=== PATIENT | female | born 1950 | race Caucasian/White ===

== ENCOUNTER 2019-12-14 13:46 | Outpatient (CLI) | payer MEDICARE, SELFPAY ==
--- NOTE | ~2019-12-14 | MM_ITS ---
EXAMINATION: MM screening vero BI w fabián HISTORY: Screening TECHNIQUE: Craniocaudal and mediolateral oblique 3-D tomosynthesis images were obtained and synthetic 2-D images were generated. CAD analysis was submitted and interpreted. COMPARISON: Comparison to multiple prior studies sequentially, with oldest reviewed study dated 03/11. BREAST PARENCHYMAL COMPOSITION: The breasts are heterogeneously dense, which may obscure small masses . FINDINGS: There is no evidence of suspicious mass, calcification, or architectural distortion to sugg est malignancy in either breast. There has been no suspicious interval change. IMPRESSION: 1. No mammographic evidence of malignancy. 2. Recommend routine screening mammography in one year. BI-RADS Category 1: Negative Reviewed, dictated and finalized at location A.
--- NOTE | ~2019-12-14 | DEXA_ITS ---
BMD(1) Young-Adult(2) Age-Matched(3) Region (g/cm2) T-score Z-score WHO Classification L1 1.184 0.4 1.2 Normal L2 1.422 1.8 2.6 Normal L3 1.457 1.9 2.7 Normal L4 1.256 0.3 1.1 Normal L1-L4 1.332 1.1 1.9 Normal Trend: L1-L4 Change vs Change vs Measured Age BMD(1) Baseline Previous Date (years) (g/cm2) (%) (%) 12/14/2019 69.4 1.332 2.1 2.1 09/25/2017 67.2 1.305 baseline - 1 - Statistically 68% of repeat scans fall within 1SD (+- 0.010 g/cm2 for AP Spine L1-L4) 2 - [place] (Combined NHANES (ages 20-30) / Adworx (ages 20-40)) AP Spine Reference Population (v112) 3 - Matched for Age, Weight (females 25-100 kg), Ethnic 11 - World Health Organization - Definition of Osteoporosis and Osteopenia for Women: Normal = T-score at or above -1.0 SD; Osteopenia = T-score between -1.0 and -2.5 SD; Osteoporosis = T-score at or below -2.5 SD; (WHO definitions only apply when a young healthy Women reference database is used to determine T-scores.) Printed: 12/14/2019 2:45:15 PM (13.60)76:3.00:22.22:27.0 0.00:12.48 0.60x1.05 28.3:%Fat=47.1% 0.00:0.00 0.00:0.00 Verify bone is centered and there is sufficient tissue next to bone. Filename: vyvleqafq.dfx Scan Mode: Thick;OneScan 83.0 uGDHgate [id number] BMD(1) Young-Adult(2,7) Age-Matched(3) Region (g/cm2) T-score Z-score WHO Classification Neck Left 0.796 -1.7 -0.6 Osteopenia Right 0.785 -1.8 -0.7 Osteopenia Mean 0.791 -1.8 -0.6 Osteopenia Difference 0.011 -0.1 -0.1 - Total Left 0.960 -0.4 0.5 Normal Right 0.896 -0.9 0.0 Normal Mean 0.928 -0.6 0.2 Normal Difference 0.064 -0.5 -0.5 - Hip [place] Length Comparison (mm) (Right = 96.7 mm) (Mean = 103.8 mm) (Left = 97.5 mm) Trend: Total Mean Change vs Change vs Measured Age BMD(1) Baseline Previous Date (years) (g/cm2) (%) (%) 12/14/2019 69.4 0.928 baseline - 1 - Statistically 68% of repeat scans fall within 1SD (+- 0.010 g/cm2 for DualFemur Total) 2 - [place] (Combined NHANES (ages 20-30) / Adworx (ages 20-40)) Femur Reference Population (v112) 3 - Matched for Age, Weight (females 25-100 kg), Ethnic 7 - DualFemur Total T-score difference is 0.5. Asymmetry is None. 11 - World Health Organization - Definition of Osteoporosis and Osteopenia for Women: Normal = T-score at or above -1.0 SD; Osteopenia = T-score between -1.0 and -2.5 SD; Osteoporosis = T-score at or below -2.5 SD; (WHO definitions only apply when a young healthy Women reference database is used to determine T-scores.) Printed: 12/14/2019 2:45:16 PM (13.60); Filename: vyvleqafq.dfx; Right Femur; 22.5:%Fat=38.2%; Neck Angle (deg)= 64; Scan Mode: Standard 37.0 uGy; Left Femur; 23.7:%Fat=42.9%; Neck Angle (deg)= 61; Scan Mode: Standard 37.0 uGy Heap [id number] Dear Gustavo Roberts, Your patient Rosalba Ang completed a BMD test on 12/14/2019 using the Heap DXA System (analysis version: 13.60) manufactured by [employer]. The following summarizes the results of our evaluation. PATIENT BIOGRAPHICAL: Name: Rosalba Ang Date: 1950 Height: 62.0 in. Gend
== END 2019-12-14 13:47 | disposition home or self-care (01) ==
LOC: CHSIMG 13:52
PROVIDERS: PCP Internal Medicine; Visit Provider Internal Medicine
DX: M81.0 Age-related osteoporosis without current pathological fracture (principal); Z12.31 Encounter for screening mammogram for malignant neoplasm of breast
CPT/HCPCS: 77063; 77067; 77080

== ENCOUNTER 2021-02-08 13:33 | Outpatient (CLI) | payer MEDICARE, SELFPAY ==
[2021-02-08 15:21] LABS: SARS-CoV-2 RNA PCR Negative (Negative)
== END 2021-02-08 13:34 | disposition home or self-care (01) ==
LOC: CHSLAB 13:35
PROVIDERS: PCP Internal Medicine; Visit Provider Internal Medicine
DX: J06.9 Acute upper respiratory infection, unspecified (principal); Z20.822 Contact with and (suspected) exposure to COVID-19
CPT/HCPCS: C9803; U0003; U0005

== ENCOUNTER 2021-03-04 08:01 | Outpatient (CLI) | payer MEDICARE, SELFPAY ==
--- NOTE | ~2021-03-04 | MM_ITS ---
EXAMINATION: MM screening vero BI w fabián HISTORY: Screening mammogram TECHNIQUE: Craniocaudal and mediolateral oblique 3-D tomosynthesis images were obtained and synthetic 2-D images were generated. CAD analysis was submitted and interpreted. COMPARISON: 12/14/2019, 11/19/2018, 09/25/2017, 03/24/2016 bilateral digital screening mammogram examinat ions BREAST PARENCHYMAL COMPOSITION: There are scattered areas of fibroglandular density. FINDINGS: Relatively stable hypodensities circumscribed lobular opacity in the posterior lower inner left breast, measuring approximately 7.9 x 7.6 mm compared to 6.6 x 6.3 mm on 03/24/2016 and 8.2 x 8 mm on 12/14/2019. This is most likely benign. Occasional scattered bilateral benign calcifications. There is no evidence of suspicious mass, calcif ication, or architectural distortion to suggest malignancy in either breast. There has been no suspic ious interval change. IMPRESSION: 1. No mammographic evidence of malignancy. 2. Recommend routine screening mammography in one year. BI-RADS Category 2: Benign finding(s). Reviewed, dictated and finalized at location A.
== END 2021-03-04 08:02 | disposition home or self-care (01) ==
LOC: CHSIMG 08:03
PROVIDERS: PCP Internal Medicine; Visit Provider Internal Medicine
DX: Z12.31 Encounter for screening mammogram for malignant neoplasm of breast (principal)
CPT/HCPCS: 77063; 77067

== ENCOUNTER 2021-09-19 08:42 | Outpatient (CLI) | payer MEDICARE, SELFPAY ==
[2021-09-19 09:22] LABS: Thyroid Stimulating Hormone 42.72 uIU/mL (0.36-3.74)
[2021-09-23 07:41] LABS: Thyroglobulin 0.2 ng/mL (2.8-40.9); Thyroglobulin Antibodies <1 IU/mL (<=1)
== END 2021-09-19 08:43 | disposition home or self-care (01) ==
LOC: CHSLAB 08:45
PROVIDERS: PCP Internal Medicine; Visit Provider Radiology Radiation Oncology
DX: C73 Malignant neoplasm of thyroid gland (principal)
CPT/HCPCS: 36415; 84432; 84443; 86800

== ENCOUNTER 2022-04-16 10:05 | Outpatient (CLI) | payer MEDICARE, SELFPAY ==
--- NOTE | ~2022-04-16 | DEXA_ITS ---
Bone Density Report Name: SARAH IRIZARRY Age: 71 Sex: Female Ethnicity: White Date of : 1950 Indication: postmenopausal; screening for osteoporosis; height loss; cancer; hysterectomy; Referring Provider: Gustavo Roberts Study: Bone densitometry was performed. Exam Date: April 16, 2022 Accession number: [id number] Bone Density: Region BMD T-score Z-score Classification AP Spine(L2, L3, L4) 1.279 1.8 4.2 Normal Femoral Neck (Left) 0.653 -1.8 0.2 Osteopenia Total Hip (Left) 0.847 -0.8 0.9 Normal Femoral Neck (Right) 0.614 -2.1 -0.2 Osteopenia Total Hip (Right) 0.791 -1.2 0.4 Osteopenia Femoral Neck Mean 0.633 -1.9 0.0 Osteopenia Total Hip Mean 0.819 -1.0 0.6 Normal World Health Organization criteria for BMD impression classify patients as: Normal (T-score at or above -1.0), Osteopenia (T-score between -1.0 and -2.5), or Osteoporosis (T-score at or below -2.5). 10-year Fracture Risk(1): Major Osteoporotic Fracture 11% Hip Fracture 2.3% Reported Risk Factors: [place] (), Neck BMD=0.614, BMI=41.0 (1) FRAX(R) Version 3.08. Fracture probability calculated for an untreated patient. Fracture probability may be lower if the patient has received treatment. Clinical Information Provided by Patient: Has used the following medications: Vitamin D, stress b Has the following medical conditions: Cancer, Hysterectomy Patient maximum height was 62 Menopause Age: 39 No regular weight bearing exercise Drinks caffeinated beverages Onset of menses at age 11 Number of children 2 Impression: The patient has low bone mass, based on the Right Femoral Neck T-score. Discussion: BONE DENSITY IS LOW AT ONE OR MORE SKELETAL SITES. This patient's lowest T-score is low at one or more skeletal sites. It meets the World Health Organization's (WHO) criteria for ?low bone mass? (T-score between -1.0 and -2.5). The patient's 10-year risk of fracture as calculated by FRAX is less than the threshold where pharmacological therapy is recommended by the National Osteoporosis Foundation (NOF). However, all treatment decisions require clinical judgment and consideration of individual patient factors, including patient preferences, comorbidities, previous drug use, risk factors not captured in the FRAX model (e.g., frailty, falls, vitamin D deficiency, increased bone turnover, interval significant decline in bone density) and possible under or overestimation of fracture risk by FRAX. The patient should follow a healthful lifestyle (good nutrition with adequate calcium and vitamin D, and appropriate weight-bearing exercise). Follow-Up: Consider repeating this study in 2 to 3 years to reassess this patient's status, or sooner if there is some new clinical indication. Reported by: Moses
--- NOTE | ~2022-04-16 | MM_ITS ---
EXAMINATION: MM screening [facility] BI w fabián HISTORY: Screening mammogram TECHNIQUE: Craniocaudal and mediolateral oblique 3-D tomosynthesis images were obtained and synthetic 2-D images were generated. CAD analysis was submitted and interpreted. COMPARISON: 03/04/2021, 12/14/2019, 11/19/2018 BREAST PARENCHYMAL COMPOSITION: There are scattered areas of fibroglandular density. FINDINGS: RIGHT BREAST: A mass is present in the anterior third of the upper-outer quadrant breast. LEFT BREAST: No suspicious mass, calcification, or architectural distortion are identified to suggest malignancy. There has been no suspicious interval change. IMPRESSION: 1. Right breast mass. 2. Additional mammographic views and possible breast ultrasound are recommended. BI-RADS Category 0: Incomplete: Needs additional imaging evaluation. Reviewed, dictated and finalized at location A. IOLOGY MANAGER IMPRESSION: 1. Right breast mass. 2. Additional mammographic views and possible breast ultrasound are recommended . BI-RADS Category 0: Incomplete: Needs additional imaging evaluation.
== END 2022-04-16 10:06 | disposition home or self-care (01) ==
LOC: CHSIMG 10:06
PROVIDERS: PCP Internal Medicine; Visit Provider Internal Medicine
DX: M81.0 Age-related osteoporosis without current pathological fracture (principal); Z12.31 Encounter for screening mammogram for malignant neoplasm of breast
CPT/HCPCS: 77063; 77067; 77080

== ENCOUNTER 2022-04-24 08:45 | Outpatient (CLI) | payer MEDICARE, SELFPAY ==
--- NOTE | ~2022-04-24 | MMUS_ITS ---
EXAMINATION: MM diagnostic vero RT w fabián, US breast RT complete HISTORY: Follow-up right breast mass TECHNIQUE: Additional 3-D tomosynthesis images of the right breast were performed and synthetic 2-D i mages were generated. CAD analysis was submitted and interpreted. High resolution complete right sumit st ultrasound was performed. COMPARISON: Comparison to multiple prior studies sequentially, with oldest reviewed study dated 03/11. BREAST PARENCHYMAL COMPOSITION: The breasts are heterogeneously dense, which may obscure small masses FINDINGS: MAMMOGRAPHIC FINDINGS: There is a 1.5 cm mass in the upper outer quadrant of the right breast. There are scattered small nod ules predominantly in the lateral aspect of the right breast obscured by fibroglandular tissue. ULTRASOUND: Complete bilateral US of all 4 quadrants of the right breast and retroareolar region was reviewed. Th ere are multiple cysts, largest at 11:00, 2 cm from the nipple measuring 1.5 cm, corresponding to the mammographic mass. At 3:00, 2 cm from the nipple there is a complicated cyst with associated areas o f comet tail artifact measuring 6 mm. The margins are slightly irregular. Parallel orientation and no internal vascularity. There are subtle posterior acoustic enhancement. IMPRESSION: 1. Complex cystic mass measuring 6 mm at 3:00, 2 cm from the nipple. 2. Fine-needle aspiration recommended. If no fluid can be obtained, biopsy is recommended. BI-RADS category 4, suspicious findings. Reviewed, dictated and finalized at location B. OR TACK PULLER IMPRESSION: 1. Complex cystic mass measuring 6 mm at 3:00, 2 cm from the nipple. 2. Fine-needle aspiration recommended. If no fluid can be obtained, biopsy is r ecommended. BI-RADS category 4, suspicious findings.
== END 2022-04-24 08:46 | disposition home or self-care (01) ==
LOC: CHSIMG 08:47
PROVIDERS: PCP Internal Medicine; Visit Provider Internal Medicine
DX: R92.8 Other abnormal and inconclusive findings on diagnostic imaging of breast (principal)
CPT/HCPCS: 76641; 77061; 77065; G0279

== ENCOUNTER 2023-01-26 08:55 | Outpatient (CLI) | payer MEDICARE, SELFPAY ==
--- NOTE | 2023-01-27 12:06 | WPDHOLTEREM ---
Holter/Event Monitor Holter/Event Monitor Date of procedure: 01/26/23 Holter/Event Procedure: 24 Hr Holter Monitor Indications: Bradycardia Conclusion: 1. 24 hour holter monitor on 01/26/23. 2. Underlying rhythm is sinus rhythm. HR range 32-85 bpm; average HR 47 bpm. HR at 32 bpm was at 11:58. 3. There are 59 premature supraventricular complexes and 5 supraventricular couplets. No supraventricular tachycardia. 4. There are 11 premature ventricular complexes. No ventricular tachycardia. 5. No sinoatrial or atrioventricular blocks. No pauses longer than 2.0 seconds. 6. No symptoms available for correlation.
== END 2023-01-26 08:56 | disposition home or self-care (01) ==
LOC: CHSCARD 08:57
PROVIDERS: PCP Internal Medicine; Visit Provider Internal Medicine
DX: R00.1 Bradycardia, unspecified (principal)
CPT/HCPCS: 93225; 93226

== ENCOUNTER 2024-07-07 14:31 | Outpatient (CLI) | payer MEDICARE, SELFPAY | END 2024-07-07 14:32 | disposition home or self-care (01) | LOC: CHSIMG 14:32 | PROVIDERS: PCP Internal Medicine; Visit Provider Internal Medicine | DX: Z78.0 Asymptomatic menopausal state (principal); M85.89 Other specified disorders of bone density and structure, multiple sites | CPT/HCPCS: 77080 ==

== ENCOUNTER 2024-07-26 09:55 | Outpatient (CLI) | payer MEDICARE, SELFPAY ==
[2024-07-26 10:17] VITALS: BP 155/88; PULSE 80; RESP 14; TEMP 36.5; O2SAT 97; BMI 35.5
[2024-07-26] MEDS: ZOLEDRONIC ACID 5 MG/100 ML 100 ML 400 MG IVPB (10:28)
[2024-07-26 10:58] VITALS: BP 152/70; PULSE 80; RESP 14
--- NOTE | 2024-07-26 11:00 | PC.NURSE ---
Patient here for Reclast infusion. Education given. All concerns voiced answered. Infusion administered. SEE MAR/patient care notes. Tolerated well.
--- OUTSIDE RECORDS SUMMARY | 2024-07-26 11:07 | XMS_ITS | Encounter Summary ---
Author Organization [facility] Healthcare Address [address] [place] [address] Care Team Providers Care Technical Sales Associate Name Role Phone Gustavo Roberts MD Primary Care Provider [phone] Nathalia Pena MD PhD Unavailable + Gianni Clarke MD Unavailable [phone] Mac Mock MD Unavailable [phone] Reason for Visit * Diagnostic Imaging (Routine) - Closed Specialty Diagnoses / Procedures Referred By Contac t Referred To Contact Procedures Breast Imaging Screening Outside Reference Brianna Winston NP Phone: tel: fax: Referral ID Status Reason Start Date Expiration Date Visits Re quested Visits Authorized [id number] Closed 05/20/2022 06/19/2023 1 1 Encounter Details Date Type Department Care Team (Late st Contact Info) Description 12/14/2019 Hospital Encounter [facility] [address] [place] [id number] Social History Tobacco Use Types Packs/Day Years Used Date Smoking Tobacco: Never Smokeless Tobacco: Never Alcohol Use Standard Drinks/Week Comments Never 0 (1 standard drink = 0.6 oz pur e alcohol) AUDIT-C Answer Date Recorded Frequency of Alcohol Consumption Never 02/03/2019 Average Number of Drinks Not on file 019 Frequency of Binge Drinking Not on file 01/10 Comments No Sex and Gender Information Value Date Recorded Sex Assigned at Not on file Legal Sex Female 9:07 AM TOP IRONER Gender Identity Not on file Sexual Orientation Not on file documented as of this encounter Plan of Treatment Not on file documented as of this encounter Procedures Procedure Name Priority Date/Time Associated Diagnosis Comments BREAST IMAGING MG SCREENING OUTSIDE REFERENCE Routine 12/14/2019 12:00 AM CDT documented in this encounter Results * Breast Imaging Screening Outside Reference (12/14/2019 12:00 AM CDT) Impressions [facility]_M[facility]MO[facility] - 05/20/2022 2:20 PM TOP IRONER These images are for Reference purposes only and have not been reviewed by [facility]iology. There will be no report generated by a [facility] Radiologist. Narrative [facility]_MAMMO[facility] - 05/20/2022 2:20 PM TOP IRONER EXAMINATION: Images For Reference Purposes Only us Brianna Winston NUCLEAR MEDICINE SUPERVISOR IMG MAMMO PROCEDURES Fin al Result [facility] documented in this encounter Visit Diagnoses Not on filedocumented in this encounter Care Teams Technical Sales Associate Relationship Specialty Start Date End Date Gustavo Roberts MD PCP - General Internal Medicine 12/30/18 07/14/23 Nathalia Pena MD PhD Radiation Oncologist Radiation Oncology 03/30/19 Gianni Clarke MD Radiation Oncologist Radiation Oncology 03/30/19 4 Mac Mock MD [address] [place] [address] Referring Physician Surgical Oncology 03/30/19 documented as of this encounter
--- OUTSIDE RECORDS SUMMARY | 2024-07-26 11:07 | XMS_ITS | Clinical Summary ---
Author Organization [facility] Address [facility] [place] [address] Care Team Providers Care Music Producer Name Role Phone Gustavo Roberts MD Primary Care Provider [phone] Sarah Perez APRN, LUBRICATION TECHNICIAN-C Unavailable Juan Yoon MD Unavailable [phone] Allergies No known active allergies Medications famotidine 20 MG tablet Take 1 tablet (20 mg total) by mouth daily as needed for Heartburn. Active levothyroxine (SYNTHROID) 112 MCG tablet Take 1 tablet (112 mcg total) by mouth every morning. 01/13/2023 Active losartan (COZAAR) 100 MG tablet Take 1 tablet (100 mg total) by mouth daily. 01/16/2023 Active amLODIPine (NORVASC) 2.5 MG tablet Take 1 tablet by mouth once daily 90 tablet 3 02/10/2024 Active Active Problems Problem Noted Date Diagnosed Date LVH (left ventricular hypertrophy) 02/10/2023 Bradycardia 02/10/2023 Primary hypertension 02/10/2023 Nonrheumatic aortic valve stenosis 02/10/2023 Family History Medical History Relation Comments A fib Father Alzheimer's disease Father Stroke Maternal Grandmother Coronary artery disease Mother Stroke Mother Relation Status Comments Father Maternal Grandmother Mother Social History Tobacco Use Types Packs/Day Years Used Date Smoking Tobacco: Never Tobacco Cessation:Counseling Given: Not Answered Comments Unknown Sex and Gender Information Value Date Recorded Sex Assigned at Not on file Legal Sex Female 3:07 PM OBSTETRICS NURSE PRACTITIONER Gender Identity Not on file Sexual Orientation Not on file Occupation Industry Job Start Date Job End Date retired Not on file Not on file Not on file Last Filed Vital Signs Vital Sign Reading Time Taken Comments Blood Pressure 172/116 11/26/2023 1:14 PM CDT Pulse 80 11/26/2023 1:14 PM CDT Temperature - - Respiratory Rate 18 11/26/2023 1:14 PM CDT Oxygen Saturation 97% 11/26/2023 1:14 PM CDT Inhaled Oxygen Concentration - - Weight 88.7 kg (195 lb 9.6 oz) 11/26/2023 1:14 P M CDT Height 152.4 cm (5') 11/26/2023 1:14 PM CDT Body Mass Index 38.2 11/26/2023 1:14 PM CDT Plan of Treatment Upcoming Encounters Date Type Department Care Team ([facility] st Contact Info) Description 02/14/2025 10:30 AM CDT Office Visit [facility] el[address] [place] [address] Sarah Perez, PARTS CHASER, LUBRICATION TECHNICIAN-C [address] [facility] [address] [place] [address] Health Maintenance Due Date Last Done Comments ASCVD Statin 1950 Colorectal Cancer Screening Colonoscopy (10 Years) 1950 Pneumococcal Vaccine: 65+ Years (1 of 2 - PCV) 1955 Hepatitis C 1967 DTaP, Tdap and Td Vaccines ( 1 - Tdap) 1968 Zoster Vaccines (1 of 2) 1999 Annual Medicare Wellness Visit 2014 Dexa Scan (General) 2014 ASCVD LDL 01/01/2024 12/31/2022 COVID-19 Vaccine (1 - 2023-2 5 season) 2024 Influenza Adult (#1) 2024 RSV Immunization or 60+ Years (1 - 1-dose 75+ series) 2024 Mammogram Screening 07/14/2025 07/15/2023, 06/24/2022 Meningococcal B Vaccine Aged Out No l onger eligible based on patient's age to complete this topic Meningococcal Vaccine Aged Out No mildred mayi eligible based on patient's age to complete this topic RSV Immunizations Under 20 Months Aged Out No longer eligible b ased on patient's age to complete this topic Procedures Procedure Name Priority Date/Time Associated Diagnosis Comments LIPID PANEL Routine 12/31/2022 from Last 3 Months or Most Recently Relevant to Health Maintenance Results * LIPID PANEL (12/31/2022) CHOLESTEROL 168 <200 HDL 33 > or=50 TRIGLYCERIDES 124 <150 NON HDL CHOLESTEROL 135 <130 CHOL/HDL RATIO 5.1 <5.0 LDL (CALCULATED) 112 12/31/2022 us Default History Genericprovider LABORATORY Final Result from Last 3 Months or Most Recently Relevant to Health Maintenance Insurance MEDICARE [facility] Care Teams Music Producer Relationship Specialty Start Date End Date Gustavo Roberts MD [address] [place] [id number] PCP - General INTERNAL MEDICINE 03/24/16 Sarah Perez APRN, LUBRICATION TECHNICIAN-C [address] [facility] [address] [place] [address] NURSE PRACTITIONER 02/02/23 Juan Yoon MD [address] [facility] [address] [place] [address] INTERVENTIONAL CARDIOLOGY 11/29/23
--- OUTSIDE RECORDS SUMMARY | 2024-07-26 11:07 | XMS_ITS | Encounter Summary ---
Author Organization [facility] Address [address] [place] [address] Care Team Providers Care Tab Card Press Operator Name Role Phone Unavailable Primary Care Provider Unavailabl e Encounter Details Date Type Department Care Team (Latest Contact Info) Description 06/17/2004 Outpatient Historical [facility] Love, Darian Gardner MD NO ADDRESS ON FILE SCREENING MAMM-MAILG NEOPL-OTHER (Primary Dx) Social History Tobacco Use Types Packs/Day Years Used Date Smoking Tobacco: Never Assessed Comments Unknown Sex and Gender Information Value Date Recorded Sex Assigned at Not on file Legal Sex Female 3:45 AM PARK ATTENDANT Gender Identity Not on file Sexual Orientation Not on file documented as of this encounter Plan of Treatment Not on file documented as of this encounter Visit Diagnoses Diagnosis Other screening mammogram- Primary documented in this encounter
--- OUTSIDE RECORDS SUMMARY | 2024-07-26 11:07 | XMS_ITS | Encounter Summary ---
Author Organization [facility] Address [facility] [place] [address] Care Team Providers Care Almond Pan Finisher Name Role Phone Gustavo Roberts MD Primary Care Provider [phone] Eriberto Shaw MD Unavailable Unavailab Darian Anaya MD Unavailable Unavailabl Sarah Serrato APRN, ROTARY DRIER-C Unavailable [phone] Juan Yoon MD Unavailable [phone] Encounter Details Date Type Department Care Team (Late Contact Info) Description 04/14/2016 Abstract [facility] [address] [place] [phone] Eriberto Shaw MD Social History Tobacco Use Types Packs/Day Years Used Date Smoking Tobacco: Unknown Comments Unknown Sex and Gender Information Value Date Recorded Sex Assigned at Not on file Legal Sex Female 3:07 PM X RAY SERVICE TECHNICIAN Gender Identity Not on file Sexual Orientation Not on file documented as of this encounter Plan of Treatment Upcoming Encounters Date Type Department Care Team (Late Contact Info) Description 02/14/2025 10:30 AM CDT [facility] [address] [place] [phone] Sarah Perez APRN, ROTARY DRIER-C [address] [facility] [address] [place] [id number] documented as of this encounter Visit Diagnoses Not on filedocumented in this encounter Care Teams Almond Pan Finisher Relationship Specialty Start Date End Date Gustavo Roberts MD [address] [place] [address] PCP - General INTERNAL MEDICINE 03/24/16 Eriberto Shaw MD [address] [place] [address] CARDIOVASCULAR DISEASE 03/24/16 02/01/23 Darian Levin MD [address] [place] [address] Consulting Physician CARDIOVASCULAR DISEASE 02/02/2308/29 Sarah Perez APRN, ROTARY DRIER-C [address] [place] [address] NURSE PRACTITIONER 02/02/23 Juan Yoon MD [address] [facility] [address] [place] [address] INTERVENTIONAL CARDIOLOGY 11/29/23 documented as of this encounter
--- OUTSIDE RECORDS SUMMARY | 2024-07-26 11:07 | XMS_ITS | Encounter Summary ---
Author Organization [facility] Address [facility] [place] [address] Care Team Providers Care Service Delivery Supervisor Name Role Phone Gustavo Roberts MD Primary Care Provider [phone] Darian Levin MD Unavailable Unavailabl e Sarah Perez APRN, MIX TECHNICIAN-C Unavailable [phone] Juan Yoon MD Unavailable [phone] Encounter Details Date Type Department Care Team (Late Contact Info) Description 02/05/2023 [facility] [address] [place] [address] Sarah Perez, ALONZO, MIX TECHNICIAN-C [address] [facility] [address] [place] [id number] Social History Tobacco Use Types Packs/Day Years Used Date Smoking Tobacco: Never Tobacco Cessation:Counseling Given: Not Answered Comments Unknown Sex and Gender Information Value Date Recorded Sex Assigned at Not on file Legal Sex Female 3: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 Gender Identity Not on file Sexual Orientation Not on file Occupation Industry Job Start Date Job End Date retired Not on file Not on file Not on file documented as of this encounter Plan of Treatment Upcoming Encounters Date Type Department Care Team (Late Contact Info) Description 02/14/2025 10:30 AM CDT [facility] [address] [place] [address] Sarah Perez, LENS GENERATING MACHINE TENDER, MIX TECHNICIAN-C [address] [address] documented as of this encounter Procedures Procedure Name Priority Date/Time Associated Diagnosis Comments CMP (ABSTRACTED LAB) Routine 12/31/2022 TSH (OUTSIDE LAB) Routine 12/31/2022 CBC (OUTSIDE LAB) Routine 12/31/2022 HEMOGLOBIN, GLYCOSYLATED Routine 12/31/2022 FREE T3 Routine 12/31/2022 LIPID PANEL Routine 12/31/2022 THYROXINE, FREE (FT4) Routine 12/31/2022 CK (CPK) Routine 12/31/2022 documented in this encounter Results * CBC (OUTSIDE LAB) (12/31/2022) WBC 6.4 3.8 - 10.8 HGB 14.0 11.7 - 15.5 HCT 43.1 35.0 - 45.0 PLT 233 140 - 400 RBC 5.21 3.80 - 5.10 MCV 82.7 80.0 - 100.0 MCH 26.9 27.0 - 33.0 MCHC 32.5 32.0 - 36.0 RDW 15.2 11.0 - 15.0 MPV 10.2 7.5 - 12.5 ABS. NEUTROPHILS 3,533 1,500 - 7,800 ABS. LYMPHOCYTES 2,138 850 - 3,900 ABS. MONOCYTES 570 200 - 950 ABS. EOSINOPHILS 128 15 - 500 ABS. BASOPHILS 32 0 - 200 NEUTROPHILS % 55.2 LYMPHOCYTES % 33.4 MONOCYTES % 8.9 EOSINOPHILS % 2.0 BASOPHILS % 0.5 12/31/2022 us Default History Genericprovider LAB-OUTSIDE/ABST RACTED Final Result * FREE T3 (12/31/2022) FREE T3 2.7 2.3 - 4.2 12/31/2022 Default History Genericprovider LABORATORY Final Result * THYROXINE, FREE (FT4) (12/31/2022) Pathologist [facility] FREE T4 1.2 0.8 - 1.8 12/31/2022 Default History Genericprovider LABORATORY Final Result * TSH (OUTSIDE LAB) (12/31/2022) Pathologist [facility] TSH 0.46 0.40 - 4.50 12/31/2022 Default History Genericprovider LAB-OUTSIDE/ABST RACTED Final Result * CK (CPK) (12/31/2022) Pathologist [facility] CPK 53 29 - 143 12/31/2022 Default History Genericprovider LABORATORY Final Result * HEMOGLOBIN, GLYCOSYLATED (12/31/2022) Pathologist [facility] HGB A1C 5.5 <5.7 % 12/31/2022 Default History Genericprovider LABORATORY Final Result * (ABNORMAL) CMP (ABSTRACTED LAB) (12/31/2022) Pathologist [facility] SODIUM S/P/B 139 135 - 146 POTASSIUM S/P/B 4.7 3.5 - 5.3 CHLORIDE S/P/B 109 98 - 110 CO2 20 20 - 32 BUN 21 7 - 25 CREATININE S/P/B 1.59(A) 0.6 - 1.00 CALCIUM S/P/B 10.1 8.6 - 10.4 GLUCOSE 94 65 - 99 mg/dL TOTAL PROTEIN S/P/B 7.4 6.1 - 8.1 ALBUMIN S/P/B 4.0 3.6 - 5.1 AST 15 10 - 35 ALT 14 6 - 29 ALKALINE PHOSPHATASE S/P/B 78 37 - 153 BILIRUBIN TOTAL S/P/B 0.5 0.2 - 1.2 12/31/2022 us Default History Genericprovider LAB-OUTSIDE/ABST RACTED Final Result * LIPID PANEL (12/31/2022) CHOLESTEROL 168 <200 HDL 33 > or=50 TRIGLYCERIDES 124 <150 NON HDL CHOLESTEROL 135 <130 CHOL/HDL RATIO 5.1 <5.0 LDL (CALCULATED) 112 12/31/2022 us Default History Genericprovider LABORATORY Final Result documented in this encounter Visit Diagnoses Not on filedocumented in this encounter Care Teams Service Delivery Supervisor Relationship Specialty Start Date End Date Gustavo Roberts MD [address] [place] [address] PCP - General INTERNAL MEDICINE 03/24/16 Darian Levin MD [address] [place] [address] Consulting Physician CARDIOVASCULAR DISEASE 02/02/2308/29 Sarah Perez APRN, MIX TECHNICIAN-C [address] [address] NURSE PRACTITIONER 02/02/23 Juan Yoon MD [address] [address] INTERVENTIONAL CARDIOLOGY 11/29/23 documented as of this encounter
--- OUTSIDE RECORDS SUMMARY | 2024-07-26 11:07 | XMS_ITS | Encounter Summary ---
Author Organization [employer] [facility] Address [address] [place] [address] Care Team Providers Care Marble Rubber Name Role Phone Unavailable Primary Care Provider Unavailabl e Encounter Details Date Type Department Care Team (Latest Contact Info) Description 09/18/2005 Outpatient Historical HIS [facility] Love, Darain Gardner MD NO ADDRESS ON FILE Abnormal Mammogram, Unspecified (Primary Dx) Social History Tobacco Use Types Packs/Day Years Used Date Smoking Tobacco: Never Assessed Comments Unknown Sex and Gender Information Value Date Recorded Sex Assigned at Not on file Legal Sex Female 3:[address]IC Gender Identity Not on file Sexual Orientation Not on file documented as of this encounter Plan of Treatment Not on file documented as of this encounter Visit Diagnoses Diagnosis Abnormal mammogram, unspecified- Primary documented in this encounter
--- OUTSIDE RECORDS SUMMARY | 2024-07-26 11:07 | XMS_ITS | Clinical Summary ---
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
--- OUTSIDE RECORDS SUMMARY | 2024-07-26 11:07 | XMS_ITS | Clinical Summary ---
Author Organization [facility] Address [address] [place] [address] Care Team Providers Care Grinder Machine Knife Setter Name Role Phone Nathalia Pena MD PhD Unavailable + Mac Mock MD Unavailable [phone] Gustavo Roberts MD Primary Care Provider [phone] Brianna Winston NP Unavailable [phone] Allergies No known active allergies Medications atenolol (TENORMIN) 50 mg tabletIndications:h ypertension Take 1 tablet (50 mg total) by mouth nightly 1 9 Active losartan (COZAAR) 50 mg tabletIndications:h ypertension Take 1 tablet (50 mg total) by mouth nightly 0 9 Active vitamin B complex/minerals (STRESS B PLUS ZINC ORAL)Indications:OT C Take 1 tablet by mouth every morning Active famotidine (PEPCID) 10 mg tabletIndications:g astroesophageal reflux disease Take 1 tablet (10 mg total) by mouth daily with dinner Active levothyroxine (SYNTHROID) 100 mcg tabletIndications:P ostoperative hypothyroidism Take 1 tablet (100 mcg total) by mouth daily 90 tablet 3 4 01/05/20 25 Active Active Problems Problem Noted Date Diagnosed Date Abnormal mammogram of right breast 06/30/2022 Thyroid carcinoma 03/30/2019 Cancer Staging:Pathologic:Stage I(pT2, pN0, cM0, Age at diagnosis: >= 55 years) - Signed by Elver Morillo MD on 03/30/2019 Multiple thyroid nodules 02/14/2019 Overview (02/14/2019): Added automatically from request for surgery [id number] Encounters Date Type Department Care Team Description 07/22/2024 11:42 AM CDT - 07/22/2024 11:59 PM CDT Hospital Encounter [facility] Breast Imaging [facility] ([facility]) [address] [place] [address] Screening mammogram, encounter for Discharge Disposition: Discharge to home or self care from Last 3 Months Surgical History Surgery Date Site/Laterality Comments SKIN CANCER EXCISION 05/11/2016 - 05/10/2017 SKIN BIOPSY HYSTERECTOMY 05/11/1989 - 05/10/1990 BIOPSY 02/03/2019 thyroid THYROID SURGERY Medical History Medical History Date Comments Kenney's palsy Multinodular goiter Hyperlipidemia Essential hypertension CKD (chronic kidney disease) Basal cell carcinoma GERD (gastroesophageal reflux disease) Thyroid nodule Anxiety Family History Medical History Relation Name Comments Alzheimer's disease Father Atrial fibrillation Father Ovarian cancer Father's Sister Skin cancer Maternal Grandmother Coronary artery disease Mother Hypertension Mother Stroke Mother Transient ischemic attack Mother Breast cancer Mother's Sister Skin cancer Mother's Sister Breast cancer Paternal Grandmother Relation Name Status Comments Father (Age 92) f rom Alzheimer's Father's Sister Maternal Grandmother Mother (Age 78) f rom cardiac issues Mother's Sister Paternal Grandmother Social History Tobacco Use Types Packs/Day Years Used Date Smoking Tobacco: Never Smokeless Tobacco: Never Tobacco Cessation:Counseling Given: Not Answered Alcohol Use Standard Drinks/Week Comments Never 0 (1 standard drink = 0.6 oz pur e alcohol) AUDIT-C Answer Date Recorded Frequency of Alcohol Consumption Never 02/03/2019 Average Number of Drinks Not on file 019 Frequency of Binge Drinking Not on file 01/10 Comments No Sex and Gender Information Value Date Recorded Sex Assigned at Not on file Legal Sex Female 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 Gender Identity Not on file Sexual Orientation Not on file Obstetrics History Last Filed Vital Signs Vital Sign Reading Time Taken Comments Blood Pressure 165/88 03/31/2019 4:07 PM ION IMPLANT MACHINE OPERATOR Pulse 60 03/31/2019 4:07 PM ION IMPLANT MACHINE OPERATOR Temperature 36.6 C (97.8 F) 03/31/2019 4:07 PM ION IMPLANT MACHINE OPERATOR Respiratory Rate 16 03/31/2019 11:41 AM ION IMPLANT MACHINE OPERATOR Oxygen Saturation 97% 03/09/2019 10:40 AM CDT Inhaled Oxygen Concentration - - Weight 94.8 kg (209 lb) 06/24/2022 1:03 PM ION IMPLANT MACHINE OPERATOR Height 152.4 cm (5') 06/24/2022 1:03 PM ION IMPLANT MACHINE OPERATOR Body Mass Index 40.82 06/24/2022 1:03 PM ION IMPLANT MACHINE OPERATOR Plan of Treatment Health Maintenance Due Date Last Done Comments Colon Cancer Screening-Colonoscopy 1949 Depression Screening 1949 Fall Risk Assessment 1949 Hepatitis C Screening 1949 Osteoporosis Screening-Bone Density Scan 1949 DTaP/Tdap/Td Vaccine (1 - Tdap) 1960 Hepatitis B Screening 1967 Pneumococcal vaccine 65+ (1 of 1 - PCV) 1999 Zoster Vaccine (1 of 2) 1999 Well Visit 65+ 2014 Influenza Vaccine (#1) 2024 Breast Cancer Screening-Mammogram Discontinued 07/22/2024, 07/15/2023, 07/15/2023, Additional history exists Procedures Procedure Name Priority Date/Time Associated Diagnosis Comments SCREENING MAMMOGRAM BILATERAL W SOY Schedule Routine, Read Routine (OP Routine) 07/22/2024 11:54 AM CDT Screening mammogram, encounter for from Last 3 Months Results * Screening Mammogram Bilateral W Soy (07/22/2024 11:54 AM CDT) Anatomical Region Laterality Modality Breast Bilateral Mammography Narrative 07/25/2024 10:21 AM CDT Mammogram Technique: Bilateral Digital Breast Tomosynthesis, Bilateral C-view 2D Screening mammogram. Views obtained: bilateral craniocaudal and bilateral mediolateral oblique. Computer Aided Detection was performed. Mammogram Findings: The present examination has been compared to prior imaging studies performed at [facility] on 06/24/2022 and 07/15/2023, and at [place], [place] on 04/24/2022 and 05/20/2022. There are scattered areas of fibroglandular density. There are multiple masses in both breasts. There are no significant changes from the prior study. There is no suspicious abnormality in either breast. Impression: There is no mammographic evidence of malignancy. Annual screening mammography is recommended. OVERALL FINAL ASSESSMENT: BI-RADS CATEGORY 2: Benign. Procedure Note Swapna Reveles MD - 07/25/2024 Mammogram Technique: Bilateral Digital Breast Tomosynthesis, Bilateral C-view 2D Screening mammogram. Views obtained: bilateral craniocaudal and bilateral mediolateral oblique. Computer Aided Detection was performed. Mammogram Findings: The present examination has been compared to prior imaging studies performed at [facility] on 06/24/2022 and 07/15/2023, and at [place], [place] on 04/24/2022 and 05/20/2022. There are scattered areas of fibroglandular density. There are multiple masses in both breasts. There are no significantchanges from the prior study. There is no suspicious abnormality in either breast. Impression: There is no mammographic evidence of malignancy. Annual screening mammography is recommended. OVERALL FINAL ASSESSMENT: BI-RADS CATEGORY 2: Benign. us Self Screening Mammogram IMG MAMMO PROCEDURES Fi nal Result from Last 3 Months Insurance MEDICARE [facility] BLUE CROSS MEDICARE SUPPLEMENT [facility] MEDICARE [facility] MEDICARE SUPPLEMENT Advance Directives For more information, please contact: [phone] * Full Code (Latest Code Status on File) Date Activated Date Inactivated Comments 03/08/2019 12:44 PM 03/09/2019 4:44 PM Care Teams Grinder Machine Knife Setter Relationship Specialty Start Date End Date Gustavo Roberts MD [address] [place] [address] PCP - General Internal Medicine 07/15/23 Nathalia Pena MD PhD Radiation Oncologist Radiation Oncology 03/30/19 Mac Mock MD [address] [place] [address] Referring Physician Surgical Oncology 03/30/19 Brianna Winston NP [address] [address] Nurse Practitioner Nurse Practitioner 07/15/23
--- OUTSIDE RECORDS SUMMARY | 2024-07-26 11:07 | XMS_ITS | Referral Summary ---
Author Organization [facility] Address [address] [place] [address] Care Team Providers Care Sales Consulting Director Name Role Phone Nathalia Pena MD PhD Unavailable + Mac Mock MD Unavailable [phone] Gustavo Roberts MD Primary Care Provider + [phone] Brianna Winston NP Unavailable [phone] Encounters Date Type Department Care Team Description 07/22/2024 11:42 AM CDT - 07/22/2024 11:59 PM CDT Hospital Encounter [facility] Medicine Breast Imaging [facility] ([facility]) [address] [place] [address] Screening mammogram, encounter for Discharge Disposition: Discharge to home or self care from Last 3 Months Allergies No known active allergies Medications atenolol [...] (02/14/2019): Added automatically from request for surgery [id number] Social History Tobacco Use Types Packs/Day Years [...] on file Legal Sex Female 9:07 AM DRIVER MEDIC Gender Identity Not on file Sexual Orientation Not on file Last Filed Vital Signs Vital Sign Reading Time Taken Comments Blood Pressure 165/88 03/31/2019 4:07 PM DRIVER MEDIC Pulse 60 03/31/2019 4:07 PM DRIVER MEDIC Temperature 36.6 C (97.8 F) 03/31/2019 4:07 PM DRIVER MEDIC Respiratory Rate 16 03/31/2019 11:41 AM DRIVER MEDIC Oxygen Saturation 97% 03/09/2019 10:40 AM CDT Inhaled Oxygen Concentration - - Weight 94.8 kg (209 lb) 06/24/2022 1:03 PM DRIVER MEDIC Height 152.4 cm (5') 06/24/2022 1:03 PM DRIVER MEDIC Body Mass Index 40.82 06/24/2022 1:03 PM DRIVER MEDIC Plan of Treatment Not on file Procedures Procedure Name Priority Date/Time Associated Diagnosis [...] compared to prior imaging studies performed at [facility] on 06/24/2022 and 07/15/2023, and at [place], [place] on 04/24/2022 and 05/20/2022. There are [...] compared to prior imaging studies performed at [facility] on 06/24/2022 and 07/15/2023, and at [place], [place] on 04/24/2022 and 05/20/2022. There are [...] Result from Last 3 Months Insurance MEDICARE [facility] BLUE CROSS MEDICARE SUPPLEMENT MEDICARE [employer] [facility] MEDICARE [facility] MEDICARE SUPPLEMENT Advance Directives For more information, please contact: [phone] * Full Code (Latest Code Status on File) Date Activated Date Inactivated Comments 03/08/2019 12:44 PM 03/09/2019 4:44 PM Care Teams Sales Consulting Director Relationship Specialty Start Date End Date Gustavo Roberts MD [address] [place] [address] PCP - General Internal Medicine 07/15/23 Nathalia Pena MD PhD Radiation Oncologist Radiation Oncology 03/30/19 Mac Mock MD [address] [place] [address] Referring Physician Surgical Oncology 03/30/19 Brianna iWnston NP [address] [address] Nurse Practitioner Nurse Practitioner 07/15/23
--- OUTSIDE RECORDS SUMMARY | 2024-07-26 11:07 | XMS_ITS | Encounter Summary ---
Author Organization [facility] Address [address] [place] [address] Care Team Providers Care Tank Truck Driver Name Role Phone Unavailable Primary Care Provider Unavailabl e Reason for Visit * Diagnostic Imaging (Routine) - Closed Specialty Diagnoses / Procedures Referred By Contkaterin t Referred To Contact Diagnoses Thyroid carcinoma (HCC) Procedures Breast Imaging Screening Outside Reference Brianna Winston NP Phone: tel: fax: Referral ID Status Reason Start Date Expiration Date Visits Re quested Visits Authorized [id number] Closed 05/20/2022 06/19/2023 1 1 Encounter Details Date Type Department Care Team (Late st Contact Info) Description 11/19/2018 Hospital Encounter [facility] [address] [place] [address] Social History Tobacco Use Types Packs/Day Years [...] on file Legal Sex Female 9:07 AM PAINTINGS RESTORER Gender Identity Not on file Sexual Orientation Not on file documented as of this encounter Functional Status documented as of this encounter Plan of Treatment Not on file documented as of this encounter Procedures Procedure Name Priority Date/Time Associated Diagnosis Comments BREAST IMAGING MG SCREENING OUTSIDE REFERENCE Schedule Routine, Read Routine (OP Routine) 11/19/2018 12:00 AM CDT Thyroid carcinoma (HCC) documented in this encounter Results * Breast Imaging Screening Outside Reference (11/19/2018 12:00 AM CDT) Impressions [facility]_MAMMO_[facility] - 05/20/2022 2:16 PM PAINTINGS RESTORER These images are for Reference purposes only and have not been reviewed by [facility]iology. There will be no report generated by a [facility] Radiologist. Narrative [facility]_MAMMO_[facility] - 05/20/2022 2:16 PM PAINTINGS RESTORER EXAMINATION: Images For Reference Purposes Only us Brianna Winston NP IMG MAMMO PROCEDURES Fin al Result [facility]MO[facility] documented in this encounter Visit Diagnoses Not on filedocumented in this encounter
--- OUTSIDE RECORDS SUMMARY | 2024-07-26 11:07 | XMS_ITS | Encounter Summary ---
Author Organization [employer] [facility] Address [address] [place] [address] Care Team Providers Care Parking Lot Signaler Name Role Phone Unavailable Primary Care Provider Unavailabl e Encounter Details Date Type Department Care Team (Latest Contact Info) Description 12/14/2006 Outpatient Historical HIS [facility] Love, Darian Gradner MD NO ADDRESS ON FILE Other Screening Mammogram (Primary Dx) Social History Tobacco Use Types Packs/Day Years Used Date Smoking Tobacco: Never Assessed Comments Unknown Sex and Gender Information Value Date Recorded Sex Assigned at Not on file Legal Sex Female 3:45 AM POOL PLAYER Gender Identity Not on file Sexual Orientation Not on file documented as of this encounter Plan of Treatment Not on file documented as of this encounter Visit Diagnoses Diagnosis Other screening mammogram- Primary documented in this encounter
--- OUTSIDE RECORDS SUMMARY | 2024-07-26 11:07 | XMS_ITS ---
Author Organization [facility] Address [address] [place] [address] Care Team Providers Care Swatch Clerk Name Role Phone Nathalia Pena MD PhD Unavailable + Mac Mock MD Unavailable [phone] Gustavo Roberts MD Primary Care Provider + [phone] Brianna Winston NP Unavailable [phone] Active Problems Problem Noted Date Diagnosed Date Abnormal mammogram of right breast 06/30/2022 Thyroid carcinoma 03/30/2019 Cancer Staging:Pathologic:Stage I(pT2, pN0, cM0, Age at diagnosis: >= 55 years) - Signed by Elver Morillo MD on 03/30/2019 Multiple thyroid nodules 02/14/2019 Overview (02/14/2019): Added automatically from request for surgery [id number] Current Treatment and Therapy Plans No current plan information found. Past Treatment and Therapy Plans No past plan information found. Radiation Treatments * Course Thyroid 1 05/20/2019 - 05/20/2019 Treatment Period Energy Fraction Dose Fractions Total Dose Plans Planned Thyroid 1 05/20/2019 - 05/20/2019 30 Reference Points Delivered Thyroid 1 05/20/2019 - 05/20/2019 30
--- OUTSIDE RECORDS SUMMARY | 2024-07-26 11:07 | XMS_ITS | Encounter Summary ---
Author Organization [facility] Healthcare Address [facility] [place] [address] Care Team Providers Care Printing Press Operator Name Role Phone Unavailable Primary Care Provider Unavailabl e Reason for Visit * Diagnostic Imaging (Routine) - Closed Specialty Diagnoses / Procedures Referred By Claudio michaud Referred To Contact Procedures Breast Imaging Screening Outside Reference Brianna Winston NP Phone: tel: fax: Referral ID Status Reason Start Date Expiration Date Visits Re quested Visits Authorized [id number] Closed 05/20/2022 06/19/2023 1 1 Encounter Details Date Type Department Care Team (Late st Contact Info) Description 09/25/2017 Hospital Encounter [facility] [address] [place] [id number] Social History Tobacco Use Types Packs/Day Years [...] on file Legal Sex Female 9:07 AM TOOL GRINDER SET UP OPERATOR GEAR Gender Identity Not on file Sexual Orientation Not on file documented as of this encounter Functional Status documented as of this encounter Plan of Treatment Not on file documented as of this encounter Procedures Procedure Name Priority Date/Time Associated Diagnosis Comments BREAST IMAGING MG SCREENING OUTSIDE REFERENCE Routine 09/25/2017 12:00 AM CDT documented in this encounter Results * Breast Imaging Screening Outside Reference (09/25/2017 12:00 AM CDT) Impressions [facility]_MAMMO[facility] - 05/20/2022 2:16 PM TOOL GRINDER SET UP OPERATOR GEAR These images are for Reference purposes only and have not been reviewed by [facility] Radiology. There will be no report generated by a [facility] Radiologist. Narrative RAD_MAMMO_[facility] - 05/20/2022 2:16 PM TOOL GRINDER SET UP OPERATOR GEAR EXAMINATION: Images For Reference Purposes Only us Brianna Winston NP IMG MAMMO PROCEDURES Fin al Result [facility]_MAMMO[facility] documented in this encounter Visit Diagnoses Not on filedocumented in this encounter
--- OUTSIDE RECORDS SUMMARY | 2024-07-26 11:07 | XMS_ITS | Encounter Summary ---
Author Organization [facility] Address [address] [place] [address] Care Team Providers Care Emergency Services Dispatcher Name Role Phone Unavailable Primary Care Provider Unavailabl e Encounter Details Date Type Department Care Team (Latest Contact Info) Description 09/08/2005 Outpatient Historical HIS [facility] Love, Darian Gardner MD NO ADDRESS ON FILE Other Screening Mammogram (Primary Dx) Social History Tobacco Use Types Packs/Day Years Used Date Smoking Tobacco: Never Assessed Comments Unknown Sex and Gender Information Value Date Recorded Sex Assigned at Not on file Legal Sex Female 3:45 AM BODY PRESS OPERATOR Gender Identity Not on file Sexual Orientation Not on file documented as of this encounter Plan of Treatment Not on file documented as of this encounter Visit Diagnoses Diagnosis Other screening mammogram- Primary documented in this encounter
--- OUTSIDE RECORDS SUMMARY | 2024-07-26 11:07 | XMS_ITS | Clinical Summary ---
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 Name Role Phone Gustavo Roberts MD Primary Care Provider [phone] Allergies No known active allergies Social History Tobacco Use Types Packs/Day Years Used Date Smoking Tobacco: Never Assessed Comments Unknown Sex and Gender Information Value Date Recorded Sex Assigned at Not on file Legal Sex Female 9:18 AM CDT Gender Identity Not on file Sexual Orientation Not on file Last Filed Vital Signs Vital Sign Reading Time Taken Comments Blood Pressure 191/109 10/20/2020 1:21 PM CDT Pulse 73 10/20/2020 1:21 PM CDT Temperature 36.9 C (98.5 F) 10/20/2020 9:21 AM CDT Respiratory Rate 16 10/20/2020 1:21 PM CDT Oxygen Saturation 98% 10/20/2020 9:21 AM CDT Inhaled Oxygen Concentration - - Weight 90.7 kg (200 lb) 10/20/2020 9:21 AM CDT Height 157.5 cm (5' 2 ) 10/20/2020 9:21 AM CDT Body Mass Index 36.58 10/20/2020 9:21 AM CDT Plan of Treatment Health Maintenance Due Date Last Done Comments DEXA Bone Density 1950 Hepatitis C Virus (HCV) Screening 1950 TdaP Immunization 1950 Colonoscopy 1994 Colorectal Cancer Screening 1994 Cologuard 1999 Immunochemical Fecal Occult Blood 1999 Mammogram 1999 Pneumococcal Immunization (5 0+ years) (1 of 1 - PCV) 1999 Zoster Immunization (1 of 2) 1999 Influenza Immunization (#1) 2024 SARS-COV-2 Immunization (1 - 2023- season) 2024 Respiratory Syncytial Virus (RSV) Immunization (Adult) (1 - 1-dose 75+ series) 2024 Hepatitis B Immunization Aged Out No longer eligible based on patient's age to complete this topic Meningococcal Immunization (ACWY) Aged Out No longer eligible based on patient's age to complete this topic Rotavirus Immunization Aged Out No lo nger eligible based on patient's age to complete this topic Insurance MEDICARE [facility] Care Teams Pai Gow Dealer Relationship Specialty Start Date End Date Gustavo Roberts MD [address] [place] [address] PCP - General Internal Medicine 10/20/20
--- OUTSIDE RECORDS SUMMARY | 2024-07-26 11:07 | XMS_ITS | Continuity of Care Document ---
Author Organization [facility], [facility]. Address [address] [place] [address] Phone Care Team Providers Care Emergency Medical Technician Name Role Phone Augie Marin OD Unavailable Unavailable Allergies, Adverse Reactions, Alerts Substance Reaction Status Criticality No Known Allergies Active No Inform ation Medications Medication Instructions Dosage Effective Dates (start - stop) Status Comments CALCIUM (unknown strength) as directed Not Available - Active Tylenol 325 mg tablet as needed - Active Fosamax 70 mg tablet once a week - Active Focus MaculaPro (unknown strength) 2 daily Not Available - Active Procedures Procedure Date OPHTHALMOLOGICAL SERVICE;GENEVA,Mehrdad PATIENT SCODI, Retina OFFICE/OUTPATIENT VISIT, EST SCODI, Retina OPHTHALMOLOGICAL SERVICE;GENEVA,Mehrdad PATIENT SCODI, Retina AREDS2 SOFTGEL OPHTHALMOLOGICAL SERVICE;GENEVA,Mehrdad PATIENT SCODI, Retina OPHTHALMOLOGICAL SERVICE;GENEVA,Mehrdad PATIENT SCODI, Retina OPHTHALMOLOGICAL SERVICE;GENEVA,Mehrdad PATIENT SCODI, Retina AREDS2 SOFTGEL POSTOP FOLLOW-UP VISIT POSTOP FOLLOW-UP VISIT POSTOP FOLLOW-UP VISIT Cataract Surgery Documented No Events Omidria 1ML Anesthesia; Lens IOL IOL MASTER OPHTHALMIC BIOMETRY POSTOP FOLLOW-UP VISIT POSTOP FOLLOW-UP VISIT Cataract Surgery Documented No Events Lensar Laser No Charge Omidria 1ML Anesthesia; Lens Corneal Topography IOL OFFICE/OUTPATIENT VISIT, EST SCODI, Retina IOL MASTER OPHTHALMIC BIOMETRY Corneal Topography Surgical Drops OPHTHALMOLOGICAL SERVICE;COMPREHENSIVE,E PATIENT SCODI, Retina AREDS2 SOFTGEL OPHTHALMOLOGICAL SERVICE;COMPREHENSIVE,E PATIENT SCODI, Retina OPHTHALMOLOGICAL SERVICE;COMPREHENSIVE,E PATIENT SCODI, Retina OPHTHALMOLOGICAL SERVICE;COMPREHENSIVE,E PATIENT SCODI, Retina OPHTHALMOLOGICAL SERVICE;COMPREHENSIVE,E PATIENT SCODI, Retina AREDS2 SOFTGEL OPHTHALMOLOGICAL SERVICE;COMPREHENSIVE,E PATIENT AREDS2 Chewable Vitamins OPHTHALMOLOGICAL SERVICE;COMPREHENSIVE,E PATIENT OPHTHALMOLOGICAL SERVICE;COMPREHENSIVE,E PATIENT OPHTHALMOLOGICAL SERVICE;COMPREHENSIVE, NEW PATIENT CURRENT MEDS W/NAME,DOSE,FREQ,ROUTE DOCU MENTED Screened For Tobacco And Is A Non-User O f Tobacco Advance Directives Directive Yes / No Effective Date File Name No Information Encounters Encounter Description Practice Location Reason(s) For Visit Diagnoses Date Provider Providers Copied on Encounter [facility] [address], [place], [address], [place] tel:[phone] Embarkly Drusen f/u (chief complaint) Drusen (degenerative) of macula, bilateralPCO (posterior capsular opacification), bilateralPresence of intraocular lensHypertensive retinopathy, left 4 Scothorn Augie. [address], [place], [address], [place]. tel:[phone] Co-Managed : Augie Gomezrtonia, [address], [place], [address]. tel:[phone] erring Provider: Augie Acosta, [address], [place], [address]. tel:[phone] OFFICE/OUTPAT IENT VISIT, [facility] [address], [place], [address], [place] tel:[phone] [facility] (chief complaint) Drusen (degenerative) of macula, bilateralPCO (posterior capsular opacification), bilateralPresence of intraocular lensHypertensive retinopathy, left 4 Scothorn Augie. [address], [place], [address], [place]. tel:[phone] Co-Managed : Augie Gomezrtonia, [address], [place], [address]. tel:[phone] erring Provider: Augie Acosta, [address], [place], [address]. tel:[phone] [facility] [address], [place], [address], [place] tel:[phone] [facility] drusen f/u (chief complaint) Drusen (degenerative) of macula, bilateralPresence of intraocular lensPCO (posterior capsular opacification), bilateral Jan- 3 Scothorn Augie. [address], [place], [address], [place]. tel:[phone] Co-Managed : Augie Gomezrtonia, [address], [place], [address]. tel:[phone] erring Provider: Augie Acosta, [address], [place], [address]. tel:[phone] [facility] [address], [place], [address], [place] tel:[phone] [employer] Fu Drusen (chief complaint) Drusen (degenerative) of macula, bilateralPresence of intraocular lensPCO (posterior capsular opacification), bilateral 3 Scothorn Augie. [address], [place], [address], [place]. tel:[phone] Co-Managed : Augie Gomezrtonia, [address], [place], [address]. tel:[phone] erring Provider: Augie Acosta, [address], [place], [address]. tel:[phone] [facility] [address], [place], [address], [place] tel:[phone] [employer] f/u drusen OU (chief complaint) Drusen (degenerative) of macula, bilateralPresence of intraocular lens 2 Scothorn Augie. [address], [place], [address], [place]. tel:[phone] Co-Managed : Augie Zakialfonso, [address], [place], [address]. tel:[phone] erring Provider: Augie Acosta, [address], [place], [address]. tel:[phone] [facility] [address], [place], [address], [place] tel:[phone] [employer] Drusen OU (chief complaint) Drusen (degenerative) of macula, bilateralPresence of intraocular lens 2 Scothorn Augie. [address], [place], [address], [place]. tel:[phone] Co-Managed : Augie Gomezrtonia, [address], [place], [address]. tel:[phone] erring Provider: Augie Acosta, [address], [place], [address]. tel:[phone] [facility] [address], [place], [address], [place] tel:[phone] Embarkly f/u PC IOL OU (chief complaint) Presence of intraocular lens 1 Zakihortonia Augie. [address], [place], [address], [place]. tel:[phone] Referring Provider: Augie Acosta, [address], [place], [address]. tel:[phone] [facility] [address], [place], [address], [place] tel:[phone] [employer] s/p phaco with IOL (10-26-20) (chief complaint) Presence of intraocular lens 1 Patriciaely Ghosh. [address], [place], [address], [place]. tel:[phone] Referring Provider: Augie Acosta, [address], [place], [address]. tel:[phone] [facility] [address], [place], [address], [place] tel:[phone] [facility] Presence of intraocular lens 1 Matt Brown. [address], [place], [place], [id number] , [place]. tel:[phone] Referring Provider: Augie Acosta, [address], [place], [address]. tel:[phone] [facility], [address] [place] [address], [address], [place] tel:[phone] [facility] No Information 1 [facility]. [address], [place], [place], [id number] , [place]. tel:[phone] Referring Provider: Leon Lopes, [address] [place] [address], [address] . tel:[phone] [facility] [address], [place], [address], [place] tel: [phone] Embarkly No Information 1 Sabiha Will. [address] [place] [address], [id number] , . tel: [phone] Referring Provider: Augie Acosta, [address], [place], [address]. tel:[phone] [facility] [address], [place], [address], [place] tel: [phone] Embarkly No Information Sabiha Will. [address] [place] [address], [id number] , . tel: [phone] Referring Provider: Augie Acosta, [address], [place], [address]. tel:[phone] [facility] [address], [place], [address], [place] tel: [phone] Embarkly 1 week s/p PCIOL OD (chief complaint) Presence of intraocular lens 1 Tania Ghosh. [address], [address], [place]. tel: [phone] Referring Provider: Augie Acosta, [address], [place], [address]. tel:[phone] [facility] [address], [place], [address], [place] tel: [phone] [facility] Presence of intraocular lens Sabiha Will. [address] [place] [address], [id number] , [place]. tel: [phone] Referring Provider: Augie Acosta, [address], [place], [address]. tel:[phone] [facility], [address] [place], [address], [place] tel:[phone] [facility] No Information 1 [facility]. [address] [place] [address], [id number] , [place]. tel:[phone] Referring Provider: Leon Lopes, [address] [place] [address], [address] . tel:[phone] [facility] [address] [place] [address], [address], [place] tel:[phone] [facility] No Information 1 Sabiha Quintero. [address] [place] [address], [address] [place] [address] , [place]. tel:[phone] Referring Provider: Leon Lopes, [address] [place] [address], [address] . tel:[phone] [facility] [address] [place] [address], [address], [place] tel:[phone] [employer] No Information 1 Sabiha Quintero. [address] [place] [address], [address] [place] [address] , [place]. tel:[phone] Referring Provider: Augie Acosta, [address], [place], [address]. tel:[phone] OFFICE/OUTPAT IENT VISIT, [facility] [address] [place] [address], [address], [place] tel:[phone] Embarkly cataract evaluation (chief complaint) Age-related nuclear cataract of right eyeAge-related nuclear cataract of left eyeDrusen stage macular degeneration of both eyes 1 Sabiha Quintero. [address] [place] [address], [id number] , [place]. tel:[phone] Referring Provider: Augie Acosta, [address], [place], [address]. tel:[phone] [facility] [address], [place], [address], [place] tel:[phone] Embarkly cataract followup (chief complaint) Nuclear sclerosis of both eyesDrusen (degenerative) of macula, bilateralVitreous floaters of both eyes 1 Scothorn Augie. [address], [place], [address], [place]. tel:[phone] Referring Provider: Augie Acosta, [address], [place], [address]. tel:[phone] [facility] [address], [place], [address], [place] tel:[phone] Embarkly 6 month cataract f/u with BAT (chief complaint) Nuclear senile cataract of both eyesMacular RPE mottlingDrusen of macula of both eyesPVD (posterior vitreous detachment), both eyesVitreous floaters of both eyes 0 Scothorn Augie. [address], [place], [address], [place]. tel:[phone] Referring Provider: Augie Acosta, [address], [place], [address]. tel:[phone] [facility] [address], [place], [address], [place] tel:[phone] Embarkly cataract followup (chief complaint) Drusen (degenerative) of macula, bilateralNuclear sclerosis of both eyesVitreous floaters of both eyesPVD (posterior vitreous detachment), both eyesMacular RPE mottling 0 Scothorn Augie. [address], [place], [address], [place]. tel:[phone] Referring Provider: Augie Acosta, [address], [place], [address]. tel:[phone] [employer] [facility] [address], [place], [address], [place] tel:[phone] [employer] [place] drusen (chief complaint) Nuclear sclerosis of both eyesVitreous floaters of both eyesPVD (posterior vitreous detachment), both eyesRPE mottling of maculaDrusen (degenerative) of macula, bilateral 9 Scothorn Augie. [address], [place], [address], [place]. tel:[phone] Referring Provider: Augie Acosta, [address], [place], [address]. tel:[phone] [facility] [address], [place], [address], [place] tel:[phone] [employer] [place] Drusen (degenerati ve) of macula, left eye (chief complaint) Drusen (degenerative) of macula, left eyeNuclear sclerosis of both eyesVitreous floaters of both eyesPVD (posterior vitreous detachment), both eyesRPE mottling of macula Scothorn Augie. [address], [place], [address], [place]. tel:[phone] Referring Provider: Augie Acosta, [address], [place], [address]. tel:[phone] [facility] [address], [place], [address], [place] tel:[phone] [employer] [place] cataract followup (chief complaint) Nuclear sclerosis of both eyesVitreous floaters of both eyesPVD (posterior vitreous detachment), both eyesDrusen (degenerative) of macula, left eye 8 Scothorn Augie. [address], [place], [address], [place]. tel:[phone] Referring Provider: Augie Acosta, [address], [place], [address]. tel:[phone] [facility] [address], [place], [address], [place] tel:[phone] Embarkly cataract followup (chief complaint) Nuclear sclerosis of both eyesVitreous floaters of both eyesPosterior vitreous detachment of left eye Sep- 7 Scothorn Augie. [address], [place], [place], [facility], . tel:[phone] Referring Provider: Augie Acosta, [address], [place], [address]. tel:[phone] [employer] [place] [address], [place], [facility], tel:[phone] Embarkly No Information Jul- 7 Scothorn Augie. [address], [place], [facility], . [phone] Referring Provider: Augie Acosta, [address], [place], [address]. tel:[phone] [employer] [address], [place], [facility], tel:[phone] Embarkly blurry vision (chief complaint) Senile nuclear sclerosisVitreous degeneration Archie- 5 Zakihortonia Ghosh. [address], [place], [address], [place]. [phone] Referring Provider: Darian Riley, [address] [place], [address] . tel:[phone] Family History Family Member Type Diagnosis Age At Onset No Information Payers Payer name Insurance type Covered republican ID Authoriza tion(s) [place] [id number] [facility] BL [id number] Social History Type Description Quantity Date Captured Comments Alcohol Use Details No Caffeine Use Details Tobacco Use Status Current non-smoker Smoking Status Never smoker Non-Smoking Tobacco Use Details : No Details Available : No Details Available Sex Female Chief Complaint And Reason For Visit From encounter dated '04/25/2024 14:50'. Drusen f/u (chief complaint). Description: The 73 year old patient presents for evaluation of Drusen f/u in the right eye and left eye. Patient states that since her last visit to clinic she hasn't noticed any changes with her vision, currently only needing OTC +3.00 readers prn. No pain orirration. No new flashes or floaters. No gtt or vikki.Focus vitamins bid Reason For Referral Reason For Referral No Information Plan Of Treatment Date Type Action Status Appointment Rosalba Ang BOOKED History Of Present Illness Encounter Date Complaint History Of Prese nt Illness Drusen f/u The 73 year old patient presents for evaluation of Drusen f/u in the right eye and left eye. Patient states that since her last visit to clinic she hasn't noticed any changes with her vision, currently only needing OTC +3.00 readers prn. No pain or irration. No new flashes or floaters. No gtt or vikki.Focus vitamins bid drusen f/u The 73 year old patient presents for evaluation of drusen f/u. Pt reports stable OU. No pain, pressure or irritation. No new floaters or flashes. No gtts. drusen f/u The 72 year old patient presents for evaluation of drusen f/u. Pt reports no changes in vision. No pain, pressure or irritation. No floaters or flashes. OUAllergy gtts as neededATs as needed Fu Drusen The 72 year old female presents for evaluation of Fu Drusen in the right eye and left eye. Oct today. Per pt vision the same. No flashing lights, no floaters. No discomfort.No gtts/ungFocus vitamins bidNo change on her Amsler grid f/u drusen OU The 71 year old female presents for evaluation of f/u drusen OU. Patient here for complete (refused refraction)/MAC OCT. H/o PCIOL OU. No vision complaints. No discomfort. Denies any floaters/flashes of light. OU ATs PRN + PreserVision AREDS 2 BID Drusen OU Pt sts her VA is stable. She is using readers for near. There is no pain, no redness and no itching.AT prnFOCUS f/u PC IOL OU The 70 year old female presents for evaluation of f/u PC IOL OU. Visual improvement reported post op from pt. She also c/o stinging and burning in both eyes, says it isn't bad but is pretty much on a constant basis.Systane Ultra PRN OU s/p phaco with IOL (10-26-20) The 70 year old female presents for evaluation of s/p phaco with IOL (10-26-20) in the left eye. Patient states vision is blurry but some improved since surgery. Patient denies scratchiness or irritation. Patient compliant with PGB TID OS. S/P OD 10/05/2020-Vision OD is doing well. I can see clear OD. Surgery drops completed OD-still using artificial tears PRN. 1 week s/p PCIOL OD Covid-19 Neg ative screeningPt states that VA OD is improving. Pt compliant with gtts. Denies pain. OD:Wcag-Grar-Bcsi TID cataract evaluation The 70 year old female presents for evaluation of cataract evaluation in the right eye and left eye. COVID-19 SCREENING NEGATIVE. Pt referred by Dr. Marin. Pt states VA blurred OU. Pt states the last several months she has noticed a decrease in VA OU. Pt unsure which eye is worse. Pt states she feels like her VA is getting worse everyday. Pt states she has trouble when watching t.v. or looking at her phone. Pt states she feels like she is having a hard time to focus, nothing is clear . Pt c/o glare and halos around lights when driving at night. Pt states she has trouble reading fine print as well. Pt states she can't recognize people across a room anymore. No pain or irritation. No floaters or flashing lights. OUNo gttsTaking AREDS2 vitamin PO BID cataract followup Covid 19 negat vernon- The 70 year old female presents for evaluation of cataract followup in the right eye and left eye. Per pt her vision has decreased at near and distance. Pt has noticed glare with lights at night and during the day. No flashing lights, no floaters.Pt also has Drusen ou . Pt taking focus vitamins bid. No changes in her amsler grid. Oct today 6 month cataract f/u with BAT Th e 69 year old female presents for evaluation of 6 month cataract f/u with BAT in the right eye and left eye. Covid 19 screening negative. Also history of drusen and needs OCT. Also history of floaters/PVD and macular RPE mottling. Patient states her vision is stable. cataract followup The 68 year ol d female presents for evaluation of cataract followup in the right eye and left eye. she needs BAT today. Also history of drusen ou and needs OCT today. Patient states her vision is stable. drusen The 68 year old female presents for evaluation of drusen in the left eye. She needs OCT and to be dilated today. Patient states her vision is stable. Drusen (degenerative ) of macula, left eye The 67 year old female presents for evaluation of Drusen (degenerative) of macula, left eye with OCT. Pt states that VA is stable. Pt states that there have been no changes since her last visit. Pt states glasses are doing well. Pt denies pain/irritation. Pt also denies flashes/floaters. No gtts. Pt still using Amsler grid, no changes with that. Pt taking ocular vitamins and would like to get more. cataract followup The 67 year ol d female presents for evaluation of cataract followup. Patient states that vision is stable at distance, patient has trouble reading small print at near. Patient denies pain or irritation. No new flashes or floaters. No gtts/vikki. Patient denies light sensitivity or glare problems. cataract followup The 66 year ol d female presents for Cataract f/u OU. Pt states she has trouble with small print & she needs a lot of light to see better. No problem watching TV. Pt has to get closer to street signs when driving to make them out clearly. No c/o glare or halos at this time. No pain or irritation. Art Tears - PRN OU blurry vision She feels her di stance vision is not as clear for the last 6 months ago. It seems worse in the left eye. She is seeing a floater in the left eye or a cataract. See started seeing flashes of light in the left eye about 1 month ago. She denies irritation or pain. Functional Status Date Functional Assessmen t No Information Instructions Date Instruction Additional Infor greer 6-8 months for DFE/MAC OCT Relat ed to Drusen (degenerative) of macula, bilateral Impression/Plan Related to Druse n (degenerative) of macula, bilateral Impression/Plan Related to PCO ( posterior capsular opacification), bilateral Impression/Plan Related to Prese nce of intraocular lens Impression/Plan Related to Hyper tensive retinopathy, left 6-8 months for complete/MAC OCT Related to Drusen (degenerative) of macula, bilateral Impression/Plan Related to PCO ( posterior capsular opacification), bilateral Impression/Plan Related to Prese nce of intraocular lens Impression/Plan Related to Druse n (degenerative) of macula, bilateral Impression/Plan Related to Hyper tensive retinopathy, left 6-8 months for DFE/MAC OCT Relat ed to Drusen (degenerative) of macula, bilateral Impression/Plan Related to Druse n (degenerative) of macula, bilateral Impression/Plan Related to Prese nce of intraocular lens Impression/Plan Related to PCO ( posterior capsular opacification), bilateral Impression/Plan Related to PCO ( posterior capsular opacification), bilateral Impression/Plan Related to Prese nce of intraocular lens Impression/Plan Related to Druse n (degenerative) of macula, bilateral Impression/Plan Related to Prese nce of intraocular lens Impression/Plan Related to Druse n (degenerative) of macula, bilateral Impression/Plan Related to Druse n (degenerative) of macula, bilateral Impression/Plan Related to Prese nce of intraocular lens Impression/Plan Related to Prese nce of intraocular lens Impression/Plan Related to Prese nce of intraocular lens Impression/Plan Related to Prese nce of intraocular lens Impression/Plan Related to Prese nce of intraocular lens Impression/Plan Related to Prese nce of intraocular lens Impression/Plan Related to Druse n stage macular degeneration of both eyes Impression/Plan Impression/Plan Related to Nucle ar sclerosis of both eyes Impression/Plan Related to Druse n (degenerative) of macula, bilateral Impression/Plan Related to Vitre ous floaters of both eyes Impression/Plan Related to Druse n of macula of both eyes Impression/Plan Related to PVD ( posterior vitreous detachment), both eyes Impression/Plan Related to Vitre ous floaters of both eyes Impression/Plan Related to Macul ar RPE mottling Impression/Plan Related to Nucle ar senile cataract of both eyes Return in 6 months w lissette Marin O.D. for Complete Exam/bat test Related to Nuclear sclerosis of both eyes Return in 6 months w lissette Marin O.D. for Oct Related to Drusen (degenerative) of macula, bilateral Impression/Plan Related to Macul ar RPE mottling Impression/Plan Related to PVD ( posterior vitreous detachment), both eyes Impression/Plan Related to Vitre ous floaters of both eyes Impression/Plan Related to Druse n (degenerative) of macula, bilateral Impression/Plan Related to Nucle ar sclerosis of both eyes Impression/Plan Related to RPE m ottling of macula Impression/Plan Related to PVD ( posterior vitreous detachment), both eyes Impression/Plan Related to Vitre ous floaters of both eyes Impression/Plan Related to Nucle ar sclerosis of both eyes Impression/Plan Related to Druse n (degenerative) of macula, bilateral Return in 6 months w ith Augie Marin O.D. for Dilated Exam./Oct Related to Drusen (degenerative) of macula, left eye Impression/Plan Related to PVD ( posterior vitreous detachment), both eyes Impression/Plan Related to Druse n (degenerative) of macula, left eye Impression/Plan Related to Nucle ar sclerosis of both eyes Impression/Plan Related to Vitre ous floaters of both eyes Impression/Plan Related to RPE m ottling of macula Rtc in 6-8 months for complete R elated to Nuclear sclerosis of both eyes Rtc in 6-8 months for Oct Relate d to Drusen (degenerative) of macula, left eye Impression/Plan Related to Druse n (degenerative) of macula, left eye Impression/Plan Related to PVD ( posterior vitreous detachment), both eyes Impression/Plan Related to Nucle ar sclerosis of both eyes Impression/Plan Related to Vitre ous floaters of both eyes Impression/Plan Related to Nucle ar sclerosis of both eyes Impression/Plan Related to Vitre ous floaters of both eyes Impression/Plan Related to Poste rior vitreous detachment of left eye - Discussed diagnosi s in detail with patient. Advised patient of condition. Will continue to observe condition and or symptoms. Discussed signs and symptoms of retinal detachment. Discussed signs and symptoms of PVD/floaters. Related to Vitreous degeneration - Cataracts account for the patient's complaints. No treatment currently recommended. The patient will monitor vision changes and contact us with any decrease in vision. Related to Senile nuclear sclerosis - . Related to Vitre ous degeneration - Return in 1 year w ith for Cataract Eval. Related to Senile nuclear sclerosis Assessments Type Assessment Date assessment Drusen (degenerative) of macula, bilateral impression Drusen (degenerative) of macula, bilateral: H35.363 assessment PCO (posterior capsular opacific ation), bilateral impression PCO (posterior capsular opacific ation), bilateral: H26.493 assessment Presence of intraocular lens Apr impression Presence of intraocular lens: Z9 6.1 assessment Hypertensive retinopathy, left D impression Hypertensive retinopathy, left: H35.032 Patient Care Teams Name Effective Dates (start - stop) Status Members No Information
== END 2024-07-26 09:56 | disposition home or self-care (01) ==
PROVIDERS: PCP Internal Medicine; Visit Provider Internal Medicine
DX: M81.0 Age-related osteoporosis without current pathological fracture (principal)
CPT/HCPCS: 96365; 96374; J3489